=== PATIENT | female | born 1980 | race Caucasian/White ===

== ENCOUNTER 2021-05-15 15:17 | Outpatient (REF) | payer OTHER, SELFPAY ==
--- NOTE | ~2021-05-15 | XR_ITS ---
EXAMINATION: XR SHOULDER, LEFT CLINICAL INFORMATION: Left shoulder injury COMPARISON: None TECHNIQUE: Three views of the left shoulder. FINDINGS: There is no evidence of acute fracture or dislocation of the left shoulder. No calcific tendinitis. The glenohumeral joint appears unremarkable. Mild spurring about the acromioclavicular joint is seen. There is no widening of the coracoclavicular space. XR/XR shoulder LT min 2V IMPRESSION: No significant bony abnormality of the left shoulder identified.
== END 2021-05-15 15:18 | disposition home or self-care (01) ==
LOC: HO.HMGCX 15:17
PROVIDERS: PCP Internal Medicine; Visit Provider Internal Medicine
DX: S46.009A Unspecified injury of muscle(s) and tendon(s) of the rotator cuff of unspecified shoulder, initial encounter (principal); S49.90XA Unspecified injury of shoulder and upper arm, unspecified arm, initial encounter
CPT/HCPCS: 73030

== ENCOUNTER 2021-06-04 14:18 | Outpatient (REF) | payer OTHER, SELFPAY ==
--- NOTE | ~2021-06-04 | US_ITS ---
EXAMINATION: US ABDOMEN COMPLETE CLINICAL INFORMATION: Cholesterolosis of the gallbladder. Follow-up gallbladder polyp. COMPARISON: Ultrasound abdomen complete 09/03/2018 and 08/07/2017. TECHNIQUE: Real-time imaging of the abdominal viscera. FINDINGS: PANCREAS: Normal. ABDOMINAL AORTA: The proximal, mid, and distal segments are normal in caliber. INFERIOR VENA CAVA: Visualized portions are normal. LIVER: Normal. The liver is normal in size. The liver contour is normal. Parenchymal echogenicity is normal. No focal hepatic lesion. There is no intrahepatic biliary duct dilatation seen. GALLBLADDER: The gallbladder is normal in size. The gallbladder wall thickness is normal measuring 0.2 cm. There were multiple small 1 to 2 mm echogenic densities adjacent to the wall suggestive of adenomyomatosis of the gallbladder wall. This is similar to previous exam. No definite gallstones are seen. There is a small amount of echogenic bile in the gallbladder. COMMON BILE DUCT: Normal in caliber measuring 0.2 cm in diameter. RIGHT KIDNEY: Normal. No hydronephrosis. No renal calculi or focal parenchymal lesions. The kidney measures 10.6 cm in maximum dimension. LEFT KIDNEY: There is a 1.2 x 0.8 x 0.9 cm cyst in the lower pole. No hydronephrosis or renal calculi. The kidney measures 10.2 cm in maximum dimension. SPLEEN: Normal. The spleen measures 7.3 cm in maximum dimension. FREE FLUID: None. US/US abdomen complete IMPRESSION: Adenomyomatosis of the gallbladder wall. Small left renal cyst.
== END 2021-06-04 14:19 | disposition home or self-care (01) ==
LOC: HO.HMGCX 14:18
PROVIDERS: Visit Provider Internal Medicine
DX: K82.4 Cholesterolosis of gallbladder (principal)
CPT/HCPCS: 76700

== ENCOUNTER → 2021-06-14 13:34 | Outpatient (BNVA) | payer OTHER, SELFPAY | PROVIDERS: PCP Internal Medicine; Visit Provider Physician Assistant | DX: M75.82 Other shoulder lesions, left shoulder (principal) | CPT/HCPCS: 20610; 99202; J1040 ==

== ENCOUNTER → 2021-07-31 12:49 | Outpatient (BNVA) | payer OTHER, SELFPAY | PROVIDERS: PCP Internal Medicine; Visit Provider Physician Assistant | DX: M75.82 Other shoulder lesions, left shoulder (principal); S46.009D Unspecified injury of muscle(s) and tendon(s) of the rotator cuff of unspecified shoulder, subsequent encounter | CPT/HCPCS: 99212 ==

== ENCOUNTER 2021-08-21 13:36 | Outpatient (REF) | payer OTHER, SELFPAY ==
--- NOTE | ~2021-08-21 | MR_ITS ---
EXAMINATION: MRI SHOULDER WITHOUT CONTRAST, LEFT CLINICAL INFORMATION: Injury, pain, decreased range of motion. COMPARISON: X-ray 05/15/2021. TECHNIQUE: MRI of the shoulder without contrast is performed in a 1.5 Hannah high-field scanner. FINDINGS: CORACOACROMIAL ARCH: Mild acromioclavicular arthritis. No significant fluid in the subacromial subdeltoid space. Undersurface of the acromion is concave. ROTATOR CUFF: Mild tendinosis in the distal supraspinatus and infraspinatus tendons. No focal tear. Teres minor, subscapularis are intact. ROTATOR CUFF MUSCLES: No muscle atrophy or fatty infiltration. BICEPS TENDON: Intact LABRUM/CAPSULE: Increased signal in the mid/inferior labrum, with a somewhat linear configuration. This is suggestive of degeneration plus/minus undisplaced tear. Remainder the labrum is intact GLENOHUMERAL JOINT/MARROW: In the posterior aspect of the humeral head, is a 5 x 6 mm T2 bright focus with internal low signal foci, well-defined margins, no surrounding edema, has a nonaggressive appearance. Differential consideration include chondroid lesion such as enchondroma. MR/MR shoulder LT wo con IMPRESSION: 1. Mild distal supraspinatus and infraspinatus tendinosis. No focal rotator cuff tear is seen. 2. Findings in the posterior labrum, in the mid/inferior quadrant, are suggestive of degeneration plus/minus undisplaced tear. 3. 5 x 6 mm lesion in the posterior aspect of the humeral head, has a nonaggressive appearance. Differential consideration include nonaggressive chondroid lesion. 4. Mild acromioclavicular arthritis.
== END 2021-08-21 13:37 | disposition home or self-care (01) ==
LOC: HO.MRI 13:36
PROVIDERS: Visit Provider Physician Assistant
DX: S46.009A Unspecified injury of muscle(s) and tendon(s) of the rotator cuff of unspecified shoulder, initial encounter (principal); X58.XXXA Exposure to other specified factors, initial encounter; Y93.9 Activity, unspecified; Y92.9 Unspecified place or not applicable; Y99.8 Other external cause status
CPT/HCPCS: 73221

== ENCOUNTER → 2021-08-29 10:46 | Outpatient (BNVA) | payer OTHER, SELFPAY | PROVIDERS: PCP Internal Medicine; Visit Provider Physician Assistant | DX: M19.012 Primary osteoarthritis, left shoulder (principal); M75.92 Shoulder lesion, unspecified, left shoulder | CPT/HCPCS: 99212 ==

== ENCOUNTER 2023-04-17 08:40 | Outpatient (AMB) | payer OTHER, SELFPAY ==
--- NOTE | 2023-04-17 08:52 | MHC.PC.OV ---
Vital Signs 04/17/23 08:56 Height 5 ft 2 in Weight 114 lb BMI 20.8 BP 120/68 Blood Pressure Location Rt brachial Position Sitting Pulse 59 Pulse Source Pulse Oximeter Pulse Oximetry (%) 100 Oxygen Delivery Method Room Air Intake Visit Reasons: health concerns Intake Note: Pt is here today for a sick visit. Pt states that she injured her L elbow a year ago and about a month ago she injured it again. Pt also c/o pressure behind her knees and also she is going through menopause. Pt states that her sister got dx with celiac recently and she would like to have blood work kunz to check for celiac. Allergies zolpidem [Ambien] Adverse Reaction (Unknown, Verified 04/17/23 09:06) sleep walking Medication List - Last Reconciled 04/17/23 by Ellen Plaza MD aluminum chloride 20% (Drysol) 1 appl topical 2XW meloxicam 15 mg PO DAILY Tobacco use date assessed: 04/17/23 Dental Screening Dental Screen Date: 04/17/23 Did you have a dental visit in the last 12 months?: Yes Did you have a dental problem in the last 6 months where you did not have access to dental care?: No Was dental information given to patient?: Patient has dentist HPI health concerns HPI Details Pt presents for PE. She complains of L elbow pain for 1 month worse when lifting or twisting started after patient lifted a heavy box. She has been taking ibuprofen with some relief. Patient complains of hot flashes worse at night for the last year. Her last menses were a year and a half ago. Patient complains of episodes of sharp pressure behind R knee lasting 10 secs, 7/10, radiating to posterior thigh usually relieved by sitting down once or twice a week for the last month. 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 Patient denies pain at rest or knee joint swelling. [facility] Medical History Gall bladder polyp Rotator cuff injury Shoulder injury Family History (Updated 04/17/23 @ 10:04 by Ellen Plaza MD) Father Hypertension Mother No problems noted. Sister Celiac disease Social History (Updated 04/17/23 @ 10:03 by Ellen Plaza MD) Household Members Other:: single, works in a cafeteria, smokes 3 cigarettes a day Housing: House Patient Tobacco Use Status: Current everyday Tobacco user Tobacco use type: Cigarette Cigarettes Per Day: 3 Years Smoked: since 22 years old e-Cigarette/Vaping Use: Never Used Current occupational status: employed Cognitive needs: No Hearing needs: No Vision needs: Yes Questionnaire PHQ-9 Over the last 2 weeks, how often have you been bothered by any of the following problems? 1. Little interest or pleasure in doing things: not at all 2. Feeling down, depressed, or hopeless: not at all 3. Trouble falling or staying asleep, or sleeping too much: several days 4. Feeling tired or having little energy: several days 5. Poor appetite or overeating: not at all 6. Feeling bad about yourself - or that you are a failure or have let yourself or your family down: not at all 7. Trouble concentrating on things, such as reading the newspaper or watching television: not at all 8. Moving or speaking so slowly that other people could have noticed. Or the opposite - being so fidgety or restless that you have been moving around a lot more than usual: not at all 9. Thoughts that you would be better off or of hurting yourself in some way: not at all Total score: 2 Depression Screening Interpretation: Negative Depression Screening Done: Yes Source: Developed by Drs. Gage Eldridge, Amy Lr, Rafael Johnson and colleagues, with an educational radha from [email or web address] Thrive Questionnaire Date Thrive assessed: 04/17/23 I am a: Patient What is your living situation today?: I have a steady place to live Within the past 12 months, did the food you bought not last and you didn't have the money to get more?: Never true Within the past 12 months, did you worry whether your food would run out before you got money to buy more?: Never true Do you have trouble paying for medicines?: No Do you have trouble getting transportation to medical appointments?: No Do you have trouble paying your heating and electricity bill?: No Do you have trouble taking care of your child, family member or friend?: No Do you have trouble with day-to-day activities such as bathing, preparing meals, shopping, managing finances, etc.?: No Are you currently unemployed and looking for a job?: No Are you interested in more education?: No Please select the resources that you would like help with: None Currently or been in a relationship where the following occur: no concerns reported THRIVE Score: 0 AUDIT C Alcohol Use Questionnaire (AUDIT-C) 1. How often do you have a drink containing alcohol?: Never 3. How often do you have six or more drinks on one occasion?: Never Total Score: 0 CATHY-7 AMB Questionnaire CATHY-7 Date CATHY - 7 assessed: 04/17/23 Feeling nervous, anxious, or on edge: 0 = Not at all Not being able to stop or control worryin = Not at all Worrying too much about different things: 0 = Not at all Trouble relaxin = Not at all Being so restless that it is hard to sit still: 0 = Not at all Becoming easily annoyed or irritable: 0 = Not at all Feeling afraid as if something awful might happen: 0 = Not at all Total CATHY-7 score (0-4 normal; 5-9 mild; 10-14 moderate; 15-21 severe): 0 Source: Developed by Drs. Gage Eldridge, Amy Lr, Rafael Johnson and colleagues, with an educational radha from [email or web address] Review of Systems Const All systems reviewed & are unremarkable except as noted in HPI and below Reports no additional complaints Eyes Reports no additional complaints ENT Reports no additional complaints Card Reports no additional complaints Resp Reports no additional complaints GI Reports no additional complaints Reports no additional complaints Physical exam (Primary Care) Vital Signs: Last Vital Signs Pulse 59 04/17/23 08:56 BP 120/68 04/17/23 08:56 Pulse Ox 100 04/17/23 08:56 Oxygen Delivery Method Room Air 04/17/23 08:56 BMI result Body Mass Index 20.8 Tobacco/Smoking Status: Tobacco use Status Tobacco use date assessed 04/17/23 04/17/23 09:05 Patient Tobacco Use Status Current everyday Tobacco 04/17/23 08:54 Tobacco use type Cigarette 04/17/23 08:54 e-Cigarette/Vaping Use Never Used 04/17/23 09:05 PHQ-9: PHQ-9 Score PHQ-9: Total score 2 04/17/23 09:08 Depression Screening Interpretation: Negative Thrive Assessment: Date of Thrive Assessment Date Thrive assessed 04/17/23 04/17/23 09:08 Currently or been in a relationship where the following occur: no concerns reported Const General: no acute distress HENMT Head: Yes normal to inspection Ears: hearing grossly normal bilaterally Mouth: Normal oral and palatal mucosa present Eyes General: appearance normal, both eyes and all related structures Neck Neck: Yes no lymphadenopathy and Yes supple Resp Effort & Inspection: normal respiratory effort Auscultation: clear to auscultation bilaterally Cardio Rhythm: regular rhythm Heart sounds: S1 normal heart sound present and S2 normal heart sound present GI Inspection: Yes normal to inspection Palpation (GI): Soft to palpation Percussion: Yes normal to percussion Auscultation: normal bowel sounds Extrem Other: reproducible tenderness in the lateral aspect of left elbow and decreased range of motion no soft tissue swelling. There is a decreased range of motion right knee tenderness behind the right knee no soft tissue swelling erythema or warmth General: Yes no clubbing, cyanosis or edema Assessment and Plan Assessment & Plan (1) Annual physical exam: Code(s): Z00.00 - Encounter for general adult medical examination without abnormal findings Plan: Well-balanced diet regular physical activity discussed with the patient she will have a fasting blood work will be referred for mammogram and screening colonoscopy (2) Knee pain, right: Code(s): M25.561 - Pain in right knee Plan: Check x-ray of right knee and knee exercises given to the patient (3) Left tennis elbow: Code(s): M77.12 - Lateral epicondylitis, left elbow Plan: Check elbow x-ray try meloxicam 15 mg daily and refer for physical therapy (4) Gall bladder polyp: Comment: Follow-up with gallbladder ultrasound, multiple less than 3 mm Code(s): K82.4 - Cholesterolosis of gallbladder (5) Hx of cone biopsy of cervix: Comment: 2018 Dr. Beckham, negative, pap negative HPV 2017 Code(s): Z98.890 - Other specified postprocedural states Plan: Patient will return for a Pap smear Orders: Orders Comprehensive [place]. Panel Fast Today Z00.00 - Encounter for general adult medical examination without abnormal findings Complete Blood Count Auto Diff Today Z00.00 - Encounter for general adult medical examination without abnormal findings Transglutaminase IgA Today Z00.00 - Encounter for general adult medical examination without abnormal findings XR elbow LT 2V Today M77.12 - Lateral epicondylitis, left elbow, Z00.00 - Encounter for general adult medical examination without abnormal findings XR knee RT 2V Today M25.561 - Pain in right knee, Z00.00 - Encounter for general adult medical examination without abnormal findings US abdomen limited Today K82.4 - Cholesterolosis of gallbladder Lipid Panel Today Z00.00 - Encounter for general adult medical examination without abnormal findings Endomysial IgA rflx Titer Today Z00.00 - Encounter for general adult medical examination without abnormal findings Immunoglobulins,IgG IgA IgM Today Z00.00 - Encounter for general adult medical examination without abnormal findings TSH reflex Free T4 Today Z00.00 - Encounter for general adult medical examination without abnormal findings Vitamin D 25-OH Total Today Z00.00 - Encounter for general adult medical examination without abnormal findings PT Evaluation and Treatment Today Z00.00 - Encounter for general adult medical examination without abnormal findings MM screening mammo BI Today Z00.00 - Encounter for general adult medical examination without abnormal findings, Z12.31 - Encounter for screening mammogram for malignant neoplasm of breast Medications: New meloxicam 15 mg PO DAILY 10 tabs 0RF aluminum chloride 20% (Drysol) 1 appl topical 2XW 37.5 mL 5RF Coding Level of Care Code Est Pt Prev Care 40-64y(73656) Diagnoses Annual physical exam Z00.00 Knee pain, right M25.561 Left tennis elbow M77.12 Gall bladder polyp K82.4 Hx of cone biopsy of cervix Z98.890
[2023-04-17 08:56] VITALS: BP 120/68; PULSE 59; O2SAT 100; BMI 20.8
== END 2023-04-17 10:09 | disposition home or self-care (01) ==
PROVIDERS: PCP Internal Medicine; Visit Provider Internal Medicine
DX: Z00.00 Encounter for general adult medical examination without abnormal findings (principal); M25.561 Pain in right knee; M77.12 Lateral epicondylitis, left elbow; K82.4 Cholesterolosis of gallbladder; Z98.890 Other specified postprocedural states
CPT/HCPCS: 99396

== ENCOUNTER 2023-04-20 13:40 | Outpatient (REF) | payer OTHER, SELFPAY ==
--- NOTE | ~2023-04-20 | XR_ITS ---
STUDY: Left elbow and right knee INDICATION: Left elbow and right knee pain COMPARISON: None TECHNIQUE: 3 view left elbow, 2 view right knee FINDINGS: Left elbow: No fracture or dislocation. Alignment and articulations are maintained. Soft tissues are unremarkable. Right knee: Small suprapatellar effusion but no fracture or dislocation. Mild bony prominence superior aspect of the medial femoral condyle without identifiable lesion or cortical destruction.. Joint spaces are preserved. XR/XR elbow LT 2V IMPRESSION: No acute bony pathology left elbow. Small right suprapatellar effusion. Mild bony prominence medial femoral condyle of uncertain etiology and significance. If symptoms referable to this location, consider MRI.
--- NOTE | ~2023-04-20 | XR_ITS ---
STUDY: Left elbow and right knee INDICATION: Left elbow and right knee pain COMPARISON: None TECHNIQUE: 3 view left elbow, 2 view right knee FINDINGS: Left elbow: No fracture or dislocation. Alignment and articulations are maintained. Soft tissues are unremarkable. Right knee: Small suprapatellar effusion but no fracture or dislocation. Mild bony prominence superior aspect of the medial femoral condyle without identifiable lesion or cortical destruction.. Joint spaces are preserved. XR/XR knee RT 2V IMPRESSION: No acute bony pathology left elbow. Small right suprapatellar effusion. Mild bony prominence medial femoral condyle of uncertain etiology and significance. If symptoms referable to this location, consider MRI.
== END 2023-04-20 13:41 | disposition home or self-care (01) ==
LOC: HO.HMGCX 13:40
PROVIDERS: PCP Internal Medicine; Visit Provider Internal Medicine
DX: Z00.00 Encounter for general adult medical examination without abnormal findings (principal); M25.561 Pain in right knee; M77.12 Lateral epicondylitis, left elbow
CPT/HCPCS: 73070; 73560

== ENCOUNTER 2023-05-11 12:59 | Outpatient (REF) | payer OTHER, SELFPAY ==
[2023-05-11 16:22] LABS: MANUAL DIFF FLAG NO
[2023-05-11 16:35] LABS: Basophils Absolute Auto 0.1 X10*3/uL (0.0-0.2); Basophils Percent Auto 0.9 % (0-2); Eosinophils Absolute Auto 0.1 X10*3/uL (0.0-0.4); Eosinophils Percent Auto 1.7 % (0-4); Hemoglobin 15.3 g/dl (12.0-16.0); Imm Gran Abs Auto 0.03 X10*3/uL (0.00-0.03); Imm Gran Pct Auto 0.5 % (0.0-0.4); Lymphocytes Absolute Auto 2.1 X10*3/uL (1.2-4.9); Lymphocytes Percent Auto 32.1 % (20-40); Mean Corpuscular HGB Conc 33.3 g/dl (31.0-35.0); Mean Corpuscular Hemoglobin 31.4 pg (27.0-33.0); Mean Corpuscular Volume 94.5 fL (80.0-98.0); Mean Platelet Volume 12.1 fL (9.4-12.3); Monocytes Absolute Auto 0.5 X10*3/uL (0.1-1.2); Monocytes Percent Auto 7.4 % (2-11); Neutrophils Absolute Auto 3.8 x10*3/uL (2.0-8.3); Neutrophils Percent Auto 57.4 % (45-73); Platelet Count 207 X10*3/uL (160-400); Red Blood Count 4.87 X10*6/uL (4.20-5.50); Red Cell Distribution Width 12.3 % (11.0-16.0); White Blood Count 6.6 X10*3/uL (4.8-10.8)
[2023-05-11 16:49] LABS: Alanine Aminotransferase 13 U/L (0-31); Albumin Level 4.8 g/dL (3.5-5.0); Alkaline Phosphatase 62 U/L (39-117); Anion Gap 13 (12-20); Aspartate Amino Transferase 15 U/L (5-31); Bilirubin Total 0.5 mg/dL (0.0-1.0); Blood Urea Nitrogen 15 mg/dL (9-16); Calcium 9.6 mg/dL (8.4-10.2); Carbon Dioxide 24 mmol/L (22-29); Chloride 107 mmol/L (96-108); Cholesterol 242 mg/dL (<200); Estimated Glomerular Filt Rate > 60; Glucose Fasting 107 mg/dL (60-99); HDL Cholesterol 95 mg/dL (>40); LDL Cholesterol Calculated 135 mg/dL (<100); Potassium 3.9 mmol/L (3.3-5.1); Sodium 140 mmol/L (135-145); Total Protein 7.9 g/dL (6.5-8.0); Triglycerides 62 mg/dL (<150)
[2023-05-11 17:06] LABS: TSH reflex Free T4 1.16 uIU/mL (0.32-4.0); Vitamin D 25-OH Total 61.8 ng/mL (>30)
[2023-05-13 13:52] LABS: Transglutaminase IgA <1.0 U/mL
[2023-05-15 11:48] LABS: Endomysial IgA Antibody Negative (Negative)
[2023-05-18 11:18] LABS: IgA 135 mg/dL (47-310); IgG 1216 mg/dL (600-1640); IgM 60 mg/dL (50-300)
== END 2023-05-11 13:00 | disposition home or self-care (01) ==
LOC: HO.HMGCLDS 12:59
PROVIDERS: PCP Internal Medicine; Visit Provider Internal Medicine
DX: Z00.00 Encounter for general adult medical examination without abnormal findings (principal)
CPT/HCPCS: 36415; 80053; 80061; 82306; 82784; 84443; 85025; 86231; 86364

== ENCOUNTER 2023-05-21 08:49 | Outpatient (REF) | payer OTHER, SELFPAY ==
--- NOTE | ~2023-05-21 | US_ITS ---
EXAMINATION: US ABDOMEN LIMITED CLINICAL INFORMATION: Cholesterolosis of the gallbladder. COMPARISON: Ultrasound abdomen complete 06/04/2021 and 09/03/2018. TECHNIQUE: Real-time imaging of the right upper quadrant abdominal viscera. FINDINGS: PANCREAS: Normal. LIVER: Normal. The liver is normal in size. The liver contour is normal. Parenchymal echogenicity is normal. No focal hepatic lesion. There is no intrahepatic biliary duct dilatation seen. GALLBLADDER: The gallbladder is physiologically distended without evidence of stones, wall thickening or pericholecystic fluid. There are multiple tiny gallbladder polyps, the largest measures 0.1 x 0.2 x 0.2 cm. A small amount of sludge is seen within the gallbladder. COMMON BILE DUCT: Normal in caliber measuring 0.1 cm in diameter. RIGHT KIDNEY: Normal. No hydronephrosis. No renal calculi or focal parenchymal lesions. The kidney measures 10.9 cm in maximum dimension. FREE FLUID: None. US/US abdomen limited IMPRESSION: 1. Multiple tiny gallbladder polyps, the largest measures 0.1 x 0.2 x 0.2 cm. 2. Small amount of sludge within the gallbladder.
== END 2023-05-21 08:50 | disposition home or self-care (01) ==
LOC: HO.HMGCX 08:49
PROVIDERS: PCP Internal Medicine; Visit Provider Internal Medicine
DX: K82.4 Cholesterolosis of gallbladder (principal)
CPT/HCPCS: 76705

== ENCOUNTER 2023-07-09 11:06 | Outpatient (REF) | payer OTHER, SELFPAY ==
--- NOTE | ~2023-07-09 | MM_ITS ---
EXAMINATION: MM SCREENING DIGITAL BREAST TOMOSYNTHESIS, BILATERAL CLINICAL INFORMATION: Screening. Asymptomatic. COMPARISON: Mammography: This is a baseline study. TECHNIQUE: Digital breast tomosynthesis is performed in both the craniocaudal and mediolateral oblique views along with computer-aided detection (CAD). Synthesized 2D images are generated from the tomosynthesis. FINDINGS: The breasts are heterogeneously dense, which may obscure small masses (ACR BI-RADS breast composition Category c). There are no significant masses, abnormal calcifications, or other abnormalities. MM/MM tomosynthesis screening BI IMPRESSION: No mammographic evidence of malignancy. ASSESSMENT: BI-RADS BI-RADS 1 - Negative RECOMMENDATION: Routine annual mammography screening. 1 year F/U This examination should not preclude the clinical evaluation of a suspicious palpable abnormality. This patient's information was entered into a reminder system with a target due date for their next mammogram.
== END 2023-07-09 11:07 | disposition home or self-care (01) ==
LOC: HO.MAMMO 11:06
PROVIDERS: PCP Internal Medicine; Visit Provider Internal Medicine
DX: Z12.31 Encounter for screening mammogram for malignant neoplasm of breast (principal)
CPT/HCPCS: 77063; 77067

== ENCOUNTER → 2023-07-09 11:15 | Outpatient (BNV) | payer OTHER, SELFPAY | PROVIDERS: PCP Internal Medicine; Visit Provider Radiology Diagnostic Radiology | DX: Z12.31 Encounter for screening mammogram for malignant neoplasm of breast (principal) | CPT/HCPCS: 77063; 77067 ==

== ENCOUNTER 2023-11-12 08:13 | Outpatient (AMB) | payer OTHER, SELFPAY ==
[2023-11-12 08:14] VITALS: BP 120/66; PULSE 66; O2SAT 99; BMI 21.0
--- NOTE | 2023-11-12 08:14 | MHC.PC.OV ---
Vital Signs 11/12/23 08:14 Height 5 ft 2 in Weight 115 lb BMI 21.0 BP 120/66 Blood Pressure Location Rt brachial Position Sitting Pulse 66 Pulse Source Pulse Oximeter Pulse Oximetry (%) 99 Oxygen Delivery Method Room Air Intake Visit Reasons: Follow up Intake Note: Pt is here today for a follow up visit. Allergies zolpidem [Ambien] Adverse Reaction (Unknown, Verified 11/12/23 08:16) sleep walking Medication List - Last Reconciled 11/12/23 by Ellen Plaza MD aluminum chloride 20% (Drysol) 1 appl topical 2XW Tobacco use date assessed: 04/17/23 Dental Screening Dental Screen Date: 04/17/23 HPI Follow up HPI Details Patient presents for the follow-up of perimenopausal symptoms, including insomnia and hot flashes. She tried [id number] supplements without improvement. [facility] Medical History Gall bladder polyp Rotator cuff injury Shoulder injury Family History Father Hypertension Mother No problems noted. Sister Celiac disease Social History Household Members Other:: single, works in a cafeteria, smokes 3 cigarettes a day Housing: House Patient Tobacco Use Status: Current everyday Tobacco user Tobacco use type: Cigarette Cigarettes Per Day: 3 Years Smoked: since 22 years old e-Cigarette/Vaping Use: Never Used service: No Current occupational status: employed Cognitive needs: No Hearing needs: No Vision needs: Yes Questionnaire Thrive Questionnaire Date Thrive assessed: 04/17/23 CATHY-7 AMB Questionnaire CATHY-7 Date CATHY - 7 assessed: 04/17/23 Source: Developed by Drs. Gage Eldridge, Amy Lr, Rafael Johnson and colleagues, with an educational radha from [employer]. Review of Systems Const All systems reviewed & are unremarkable except as noted in HPI and below Reports no additional complaints Eyes Reports no additional complaints ENT Reports no additional complaints Card Reports no additional complaints Resp Reports no additional complaints GI Reports no additional complaints Physical exam (Primary Care) Vital Signs: Last Vital Signs Pulse 66 11/12/23 08:14 BP 120/66 11/12/23 08:14 Pulse Ox 99 11/12/23 08:14 Oxygen Delivery Method Room Air 11/12/23 08:14 BMI result Body Mass Index 21.0 Tobacco/Smoking Status: Tobacco use Status Tobacco use date assessed 04/17/23 11/12/23 08:16 Patient Tobacco Use Status Current everyday Tobacco 11/12/23 08:16 Tobacco use type Cigarette 11/12/23 08:16 e-Cigarette/Vaping Use Never Used 11/12/23 08:16 Thrive Assessment: Date of Thrive Assessment Date Thrive assessed 04/17/23 11/12/23 08:16 Const General: no acute distress HENMT Head: Yes normal to inspection Ears: hearing grossly normal bilaterally Throat: Yes posterior oropharynx normal Eyes General: appearance normal, both eyes and all related structures Neck Neck: Yes no lymphadenopathy and Yes supple Resp Effort & Inspection: normal respiratory effort Auscultation: clear to auscultation bilaterally Cardio Rhythm: regular rhythm Heart sounds: S1 normal heart sound present and S2 normal heart sound present Assessment and Plan Assessment & Plan (1) Hx of cone biopsy of cervix: Comment: 2018 Dr. Beckham, negative, pap negative HPV 2018 Code(s): Z98.890 - Other specified postprocedural states (2) Abnormal Pap smear of cervix: Code(s): R87.619 - Unspecified abnormal cytological findings in specimens from cervix uteri (3) Hyperlipidemia: Code(s): E78.5 - Hyperlipidemia, unspecified Plan: Low-cholesterol diet regular physical activity discussed with the patient (4) Annual physical exam: Code(s): Z00.00 - Encounter for general adult medical examination without abnormal findings (5) Menopause: Code(s): Z78.0 - Asymptomatic menopausal state Plan: Well-balanced diet regular physical activity discussed with the patient. She will try low dose of estradiol with the progesterone for 1 month. Patient was advised to quit smoking completely because of the high risk of complications from hormonal replacement therapy when smoking, Orders: Orders Vitamin D 25-OH Total 6 Months E78.5 - Hyperlipidemia, unspecified, Z00.00 - Encounter for general adult medical examination without abnormal findings UA w Microscopic 6 Months E78.5 - Hyperlipidemia, unspecified, Z00.00 - Encounter for general adult medical examination without abnormal findings Lipid Panel 6 Months E78.5 - Hyperlipidemia, unspecified, Z00.00 - Encounter for general adult medical examination without abnormal findings Comprehensive [place]. Panel Fast 6 Months E78.5 - Hyperlipidemia, unspecified, Z00.00 - Encounter for general adult medical examination without abnormal findings Complete Blood Count Auto Diff 6 Months E78.5 - Hyperlipidemia, unspecified, Z00.00 - Encounter for general adult medical examination without abnormal findings TSH reflex Free T4 6 Months E78.5 - Hyperlipidemia, unspecified, Z00.00 - Encounter for general adult medical examination without abnormal findings Referrals EMPLOYMENT [employer] EXAM[employer]ER Referral E78.5 - Hyperlipidemia, unspecified, R87.619 - Unspecified abnormal cytological findings in specimens from cervix uteri Gastroenterology Referral E78.5 - Hyperlipidemia, unspecified, Z00.00 - Encounter for general adult medical examination without abnormal findings Medications: New progesterone micronized 200 mg PO BEDTIME 30 caps 2RF estradiol 0.5 mg PO DAILY 30 days 30 tabs 2RF Coding Level of Care Code Est Pt Level 3 (60630) Diagnoses Hx of cone biopsy of cervix Z98.890 Abnormal Pap smear of cervix R87.619 Hyperlipidemia E78.5 Annual physical exam Z00.00 Menopause Z78.0
== END 2023-11-12 08:50 | disposition home or self-care (01) ==
PROVIDERS: PCP Internal Medicine; Visit Provider Internal Medicine
DX: Z98.890 Other specified postprocedural states (principal); R87.619 Unspecified abnormal cytological findings in specimens from cervix uteri; E78.5 Hyperlipidemia, unspecified; Z00.00 Encounter for general adult medical examination without abnormal findings; Z78.0 Asymptomatic menopausal state
CPT/HCPCS: 99213

== ENCOUNTER 2024-03-11 09:48 | Outpatient (REF) | payer OTHER, SELFPAY ==
[2024-03-11 13:08] LABS: C Reactive Protein < 0.04 mg/dL (< or = 0.50); Lipase 129 U/L (8-78); Magnesium 2.4 mg/dL (1.6-2.6)
[2024-03-11 13:36] LABS: Folate > 20.0 ng/mL (> or = 4.0); Vitamin B12 481 pg/mL (200-900)
[2024-03-14 11:39] LABS: Vitamin D 25-OH, D2 <4 ng/mL; Vitamin D 25-OH, D3 37 ng/mL; Vitamin D 25-OH, Total 37 ng/mL (30-100)
[2024-03-17 23:13] LABS: Transglutaminase Ab IgG <1.0 U/mL; Transglutaminase IgA <1.0 U/mL
== END 2024-03-11 09:49 | disposition home or self-care (01) ==
LOC: HO.LAB 09:48
PROVIDERS: PCP Internal Medicine; Visit Provider Nurse Practitioner Family
DX: K58.9 Irritable bowel syndrome, unspecified (principal); R10.9 Unspecified abdominal pain; R19.7 Diarrhea, unspecified; E55.9 Vitamin D deficiency, unspecified; N18.9 Chronic kidney disease, unspecified
CPT/HCPCS: 36415; 82306; 82607; 82746; 83690; 83735; 86140; 86364; 99202

== ENCOUNTER 2024-03-11 09:48 | Outpatient (AMB) | payer OTHER, SELFPAY ==
[2024-03-11 10:00] VITALS: BP 132/64; PULSE 64; O2SAT 99; BMI 21.3
--- NOTE | 2024-03-11 10:00 | A.OFFVIS_ITS ---
Vital Signs 03/11/24 10:00 Height 5 ft 2 in Weight 116 lb 6.465 oz BMI 21.3 BP 132/64 Blood Pressure Location Rt brachial Position Sitting Pulse 64 Pulse Source Pulse Oximeter Pulse Oximetry (%) 99 Oxygen Delivery Method Room Air Intake Visit Reasons: Constipation, symptomatic colo scrn Intake Note: NEW PATIENT Ashley presents in office today for a scheduled symptomatic colo scrn Prior hx of colo/egd? Initial Meds and Allergies reviewed? Y Any significant concerns or questions? Constipation, loose stools intermittently, bloating. Pt would also like celiac testing per [facility]. Pharmacy verified? [facility] Important [facility]? Sister, celiac disease Core B[employer] Operator Required: No Allergies zolpidem [Ambien] Adverse Reaction (Unknown, Verified 03/11/24 10:01) sleep walking HPI HPI Constipation, symptomatic colo scrn: Details: 43 year old? female with past medical history of hyperlipidemia, gallbladder polyp, is here today for pre colonoscopy screening.? Patient was sent to us by her PCP.? This is her first colonoscopy screening.? Patient called the office couple weeks ago and asked to be seen sooner as she has been having more frequent GI symptoms. Patient was having constipation for couple of weeks, however currently she is moving her bowels better. Patient reports occasional epigastric discomfort and bloating. Patient reports that her sister was just diagnosed with celiac. Patient reports that she is not trying to stay away from gluten although she tried gluten free diet in the past. Patient denies any abdominal pain, however she occasionally will experience epigastric pain postprandially. Patient denies any nausea or vomiting. History of gallbladder polyps and yearly ultrasound is ordered by PCP. Patient denies any family history of CRC.? Denies history of difficulty with sedation or anesthesia in the past.? Negative for history of sleep apnea.? Denies any history of cardiac, renal, pulmonary, or hepatic disease.?? No history of infectious? diseases like hepatitis A, B, C, HIV or tuberculosis.? Patient is not on any anticoagulation [facility] Medical History Gall bladder polyp Rotator cuff injury Shoulder injury Family History Father Hypertension Mother No problems noted. Sister Celiac disease Social History Household Members Other:: single, works in a cafeteria, smokes 3 cigarettes a day Housing: House Patient Tobacco Use Status: Current everyday Tobacco user Tobacco use type: Cigarette Cigarettes Per Day: 3 Years Smoked: since 22 years old e-Cigarette/Vaping Use: Never Used service: No Current occupational status: employed Cognitive needs: No Hearing needs: No Vision needs: Yes Review of Systems Const Denies weight gain and Denies weight loss ENT Reports no additional complaints, Denies dysphagia and Denies odynophagia Card Reports no additional complaints Resp Reports no additional complaints GI Reports abdominal pain (Epigastric), Denies belching, Denies melena, Reports bloating, Denies change in bowel habits, Reports constipation, Denies dysphagia, Denies excessive flatus, Denies dyspepsia, Denies heartburn, Denies diarrhea, Reports loose stools, Denies nausea, Denies odynophagia and Denies vomiting Reports no additional complaints Musc Reports no additional complaints Neuro Reports no additional complaints Psych Reports no additional complaints Endo Reports no additional complaints Physical Exam Vital Signs: Last Vital Signs Pulse 64 03/11/24 10:00 BP 132/64 03/11/24 10:00 Pulse Ox 99 03/11/24 10:00 Oxygen Delivery Method Room Air 03/11/24 10:00 BMI result Body Mass Index 21.3 Const General: healthy appearing, no acute distress and well developed Nutritional Appearance: well nourished Orientation/consciousness: patient oriented x3 Resp Effort & Inspection: normal respiratory effort, able to speak in complete sentences, no tracheal deviation and symmetric chest movement Auscultation: clear to auscultation bilaterally Cardio Rate: regular rate GI Inspection: Yes normal to inspection and No distended Palpation (GI): Soft to palpation, not firm, nontender and No hepatosplenomegaly present Auscultation: normal bowel sounds General: Yes no CVA tenderness Back/Spine/Pelvis Back: no CVA tenderness Skin General skin exam: elasticity normal, turgor normal and dry skin Neuro General: patient oriented x3 Psych Appearance: grossly normal Mental Status: mental status grossly normal Assessment & Plan Assessment & Plan (1) Screen for colon cancer: Code(s): Z12.11 - Encounter for screening for malignant neoplasm of colon (2) Postprandial epigastric pain: Code(s): R10.13 - Epigastric pain (3) Postprandial abdominal bloating: Code(s): R14.0 - Abdominal distension (gaseous) (4) Diarrhea: Code(s): R19.7 - Diarrhea, unspecified Qualifiers: Diarrhea type: functional diarrhea Qualified Code(s): K59.1 - Functional diarrhea Plan Patient denies any cardiac or respiratory symptoms.? Patient reports occasional postprandial abdominal bloating occasional loose stools and then constipation. Patient was encouraged to take fiber with probiotics and if she is having trouble moving her bowels to call the office. Family history of celiac, her sister was just diagnosed with upper endoscopy, with biopsy confirmed celiac disease. Patient denies any abdominal pain although reports postprandial epigastric pain occasionally. Patient reports that currently she is not staying away from gluten. Will send her to check transglutaminase. Reports postprandial loose stools at times. Will send CRP if positive will order stool calprotectin to rule out IBD. Discussed with patient low FODMAP diet. List of food recommended as well as list of food to avoid given to patient. Patient denies any dyspepsia, dysphagia or odynophagia. Will check lipase as she is reporting epigastric pain occasionally, possibility of chronic pancreatitis, unlikely acute pancreatitis as patient does not have any abdominal pain. Will check for malabsorption. Denies any issues with anesthesia in the past.? Denies any history of sleep apnea.? No history infectious diseases in the past or present.? Not on any anticoagulation therapy.? No family or personal history of colon cancer.? Patient denies melena, hematochezia, unintentional weight loss or ribbon like stools.? Message to surgical schedulers sent to book upper endoscopy and colonoscopy. Patient will return in 2 months so we can discuss prep before going for upper endoscopy and colonoscopy. Will discuss results. Patient will call our office if she will have worsening GI symptoms. Patient is agreeable to current plan of care and verbalizes understanding of instructions. She was given the opportunity to ask questions and all questions answered. Thank you for allowing me to participate in her care Orders: Orders C Reactive Protein Today K58.9 - Irritable bowel syndrome, unspecified Transglutaminase Ab IgG Today R10.9 - Unspecified abdominal pain Transglutaminase IgA Today R10.9 - Unspecified abdominal pain Lipase Today R10.9 - Unspecified abdominal pain Vitamin B12 and Folate Today R19.7 - Diarrhea, unspecified Vitamin D 25-OH (D2 and D3) Today E55.9 - Vitamin D deficiency, unspecified Magnesium Today N18.9 - Chronic kidney disease, unspecified Coding Level of Care Code New Pt Level 4 (52559) Diagnoses Screen for colon cancer Z12.11 Postprandial epigastric pain R10.13 Postprandial abdominal bloating R14.0 Functional diarrhea K59.1 Diarrhea type: functional diarrhea Time Spent (min) 45 Comment 30 minutes spent with patient and additional 15 minutes spent reviewing her records
== END 2024-03-11 10:43 | disposition home or self-care (01) ==
PROVIDERS: PCP Internal Medicine; Visit Provider Nurse Practitioner Family
DX: K59.00 Constipation, unspecified (principal); K59.1 Functional diarrhea; R10.13 Epigastric pain; R14.0 Abdominal distension (gaseous)
CPT/HCPCS: 99204

== ENCOUNTER 2024-05-04 08:26 | Outpatient (REF) | payer OTHER, SELFPAY ==
--- NOTE | ~2024-05-04 | US_ITS ---
CLINICAL HISTORY: K82.4 - Cholesterolosis of gallbladder Limited abdominal ultrasound Comparison: None Findings: The liver is normal in size, measuring 14.1 cm in length. Normal echogenicity without focal lesions. The common bile duct is normal in diameter, measuring 0.2 cm. No cholelithiasis. There are tiny gallbladder polyps which measure up to 2 mm. No wall thickening or pericholecystic fluid. Negative sonographic Saldaña sign. The right kidney is normal in echogenicity and size, measuring up to 10.7 cm in length. Unremarkable limited evaluation of the pancreas. Impression: Negative for acute cholecystitis. Tiny gallbladder polyps measuring up to 2 mm. This document has been electronically signed by: Erendira Vazquez MD on 05/04/2024 21:19:04
[2024-05-04 10:11] LABS: MANUAL DIFF FLAG NO
[2024-05-04 10:17] LABS: Basophils Percent Auto 0.5 % (0-2); Eosinophils Absolute Auto 0.1 X10*3/uL (0.0-0.4); Eosinophils Percent Auto 1.4 % (0-4); Hematocrit 42.5 % (37.0-47.0); Hemoglobin 13.9 g/dl (12.0-16.0); Imm Gran Abs Auto 0.02 X10*3/uL (0.00-0.03); Imm Gran Pct Auto 0.3 % (0.0-0.4); Lymphocytes Absolute Auto 1.6 X10*3/uL (1.2-4.9); Lymphocytes Percent Auto 20.5 % (20-40); Mean Corpuscular HGB Conc 32.7 g/dl (31.0-35.0); Mean Corpuscular Hemoglobin 30.7 pg (27.0-33.0); Mean Corpuscular Volume 93.8 fL (80.0-98.0); Mean Platelet Volume 11.6 fL (9.4-12.3); Monocytes Absolute Auto 0.4 X10*3/uL (0.1-1.2); Monocytes Percent Auto 5.5 % (2-11); Neutrophils Absolute Auto 5.6 x10*3/uL (2.0-8.3); Neutrophils Percent Auto 71.8 % (45-73); Platelet Count 206 X10*3/uL (160-400); Red Blood Count 4.53 X10*6/uL (4.20-5.50); Red Cell Distribution Width 12.2 % (11.0-16.0); White Blood Count 7.9 X10*3/uL (4.8-10.8)
[2024-05-04 10:43] LABS: Appearance Urine Clear; Color Urine Yellow; Glucose Urine UA Negative (Negative); Leukocyte Esterase Urine Negative (Negative); Nitrite Urine Negative (Negative); PH 5.5 (5.0-9.0); Specific Gravity - Urine >= 1.030 (1.005-1.025); Urine Blood Negative (Negative); Urine Ketones Negative (Negative); Urine Protein Negative (Neg-Trace)
[2024-05-04 10:45] LABS: Bacteria Urine None Seen (None Seen); Hyaline Casts Urine 0-2 /LPF (0-2); RBC Urine 0-2 /HPF (0-2); WBC Urine 0-5 /HPF (0-5)
[2024-05-04 10:48] LABS: Alanine Aminotransferase 15 U/L (0-31); Albumin Level 4.4 g/dL (3.5-5.0); Alkaline Phosphatase 60 U/L (39-117); Anion Gap 11 (12-20); Aspartate Amino Transferase 19 U/L (5-31); Bilirubin Total 0.3 mg/dL (0.0-1.0); Blood Urea Nitrogen 16 mg/dL (9-16); Calcium 9.2 mg/dL (8.4-10.2); Carbon Dioxide 25 mmol/L (22-29); Chloride 110 mmol/L (96-108); Cholesterol 217 mg/dL (<200); Estimated Glomerular Filt Rate > 60; Glucose Fasting 103 mg/dL (60-99); HDL Cholesterol 74 mg/dL (>40); LDL Cholesterol Calculated 133 mg/dL (<100); Potassium 4.3 mmol/L (3.3-5.1); Sodium 142 mmol/L (135-145); Total Protein 7.2 g/dL (6.5-8.0); Triglycerides 53 mg/dL (<150)
[2024-05-04 10:53] LABS: TSH reflex Free T4 1.62 uIU/mL (0.32-4.0); Vitamin D 25-OH Total 41.8 ng/mL (>30)
== END 2024-05-04 08:27 | disposition home or self-care (01) ==
LOC: HO.HMGCX 08:26
PROVIDERS: PCP Internal Medicine; Visit Provider Internal Medicine
DX: K82.4 Cholesterolosis of gallbladder (principal); E78.5 Hyperlipidemia, unspecified; Z00.00 Encounter for general adult medical examination without abnormal findings
CPT/HCPCS: 36415; 76705; 80053; 80061; 81001; 82306; 84443; 85025

== ENCOUNTER → 2024-05-04 08:30 | Outpatient (BNV) | payer OTHER, SELFPAY | PROVIDERS: PCP Internal Medicine; Visit Provider Radiology Diagnostic Radiology | DX: K82.4 Cholesterolosis of gallbladder (principal) | CPT/HCPCS: 76705 ==

== ENCOUNTER 2024-05-19 08:02 | Outpatient (REF) | payer OTHER, SELFPAY ==
[2024-05-24 15:03] LABS: HPV Genotype 16 Negative (Negative); HPV Genotype 18 Negative (Negative); HPV High Risk Negative (Negative)
== END 2024-05-19 08:03 | disposition home or self-care (01) ==
LOC: HO.LNP 08:02
PROVIDERS: PCP Internal Medicine; Visit Provider Internal Medicine
DX: Z00.00 Encounter for general adult medical examination without abnormal findings (principal); Z12.4 Encounter for screening for malignant neoplasm of cervix; Z11.51 Encounter for screening for human papillomavirus (HPV); E78.5 Hyperlipidemia, unspecified
CPT/HCPCS: 87626; 88175; 96127; 99396

== ENCOUNTER 2024-05-19 08:02 | Outpatient (AMB) | payer OTHER, SELFPAY ==
[2024-05-19 08:08] VITALS: BP 106/68; PULSE 70; RESP 18; TEMP 37.3; O2SAT 100; BMI 21.2
--- NOTE | 2024-05-19 08:08 | A.OFFPC_ITS ---
Vital Signs 05/19/24 08:08 Height 5 ft 2 in Weight 116 lb BMI 21.2 BP 106/68 Blood Pressure Location Lt brachial Position Sitting Respiration 18 Pulse 70 Pulse Source Pulse Oximeter Temp 99.2 F Temp Source Oral Pulse Oximetry (%) 100 Oxygen Delivery Method Room Air Intake Visit Reasons: Annual PE Intake Note: Pt is here today for PE. Allergies zolpidem [Ambien] Adverse Reaction (Unknown, Verified 05/19/24 08:09) sleep walking Medication List - Last Reconciled 05/19/24 by Ellen Plaza MD aluminum chloride 20% (Drysol) 1 appl topical 2XW Tobacco use date assessed: 05/19/24 Dental Screening Dental Screen Date: 05/19/24 Did you have a dental visit in the last 12 months?: Yes Did you have a dental problem in the last 6 months where you did not have access to dental care?: No Was dental information given to patient?: Patient has dentist HPI Annual PE HPI Details Patient presents for physical. Hormone replacement therapy helped with the hot flashes but symptoms reoccurred after patient has stopped taking the medications. She complains of chronic anxiety and insomnia since teenager age. She denies depression. Patient has been trying meditation and is not interested in counseling. [facility] Medical History Gall bladder polyp Rotator cuff injury Shoulder injury Surgical History No pertinent past surgical history Family History Father Hypertension Mother No problems noted. Sister Celiac disease Social History Household Members Other:: single, works in a cafeteria, smokes 3 cigarettes a day Housing: House Patient Tobacco Use Status: Current everyday Tobacco user Tobacco use type: Cigarette Cigarettes Per Day: 3 Years Smoked: since 22 years old e-Cigarette/Vaping Use: Never Used service: No Current occupational status: employed Cognitive needs: No Hearing needs: No Vision needs: Yes Questionnaire PHQ-9 Over the last 2 weeks, how often have you been bothered by any of the following problems? 1. Little interest or pleasure in doing things: not at all 2. Feeling down, depressed, or hopeless: not at all 3. Trouble falling or staying asleep, or sleeping too much: more than half the days 4. Feeling tired or having little energy: several days 5. Poor appetite or overeating: not at all 6. Feeling bad about yourself - or that you are a failure or have let yourself or your family down: not at all 7. Trouble concentrating on things, such as reading the newspaper or watching television: not at all 8. Moving or speaking so slowly that other people could have noticed. Or the opposite - being so fidgety or restless that you have been moving around a lot more than usual: not at all 9. Thoughts that you would be better off or of hurting yourself in some way: not at all Total score: 3 Depression Screening Interpretation: Negative Depression Screening Done: Yes 22397 - PHQ-9 Billing: Yes Source: Developed by Drs. Gage Eldridge, Amy Lr, Rafael Johnson and colleagues, with an educational radha from [employer]. Thrive Questionnaire Date Thrive assessed: 05/19/24 I am a: Patient What is your living situation today?: I have a steady place to live Within the past 12 months, did the food you bought not last and you didn't have the money to get more?: Never true Within the past 12 months, did you worry whether your food would run out before you got money to buy more?: Never true Do you have trouble paying for medicines?: No Do you have trouble getting transportation to medical appointments?: No Do you have trouble paying your heating and electricity bill?: No Do you have trouble taking care of your child, family member or friend?: No Do you have trouble with day-to-day activities such as bathing, preparing meals, shopping, managing finances, etc.?: No Are you currently unemployed and looking for a job?: No Are you interested in more education?: No Please select the resources that you would like help with: None Currently or been in a relationship where the following occur: I choose not to answer THRIVE Score: 0 AUDIT C Alcohol Use Questionnaire (AUDIT-C) 1. How often do you have a drink containing alcohol?: Monthly or less 2. How many drinks containing alcohol do you have on a typical day when you are drinking?: 3 or 4 3. How often do you have six or more drinks on one occasion?: Never Total Score: 2 CATHY-7 AMB Questionnaire CATHY-7 Date CATHY - 7 assessed: 05/19/24 Feeling nervous, anxious, or on edge: 1 = Several days Not being able to stop or control worryin = Several days Worrying too much about different things: 1 = Several days Trouble relaxin = Several days Being so restless that it is hard to sit still: 1 = Several days Becoming easily annoyed or irritable: 1 = Several days Feeling afraid as if something awful might happen: 1 = Several days Total CATHY-7 score (0-4 normal; 5-9 mild; 10-14 moderate; 15-21 severe): 7 Source: Developed by Drs. Gage Eldridge, Amy Lr, Rafael Johnson and colleagues, with an educational radha from [employer]. CATHY-7 Assessment Billing CATHY-7 Assessment Tool: CATHY-7 Assessment 57935 Review of Systems Const All systems reviewed & are unremarkable except as noted in HPI and below Eyes Reports no additional complaints ENT Reports no additional complaints Card Reports no additional complaints Resp Reports no additional complaints GI Reports no additional complaints Reports no additional complaints Physical exam (Primary Care) Vital Signs: Last Vital Signs Temp 99.2 F 05/19/24 08:08 Pulse 70 05/19/24 08:08 Resp 18 05/19/24 08:08 BP 106/68 05/19/24 08:08 Pulse Ox 100 05/19/24 08:08 Oxygen Delivery Method Room Air 05/19/24 08:08 BMI result Body Mass Index 21.2 Tobacco/Smoking Status: Tobacco use Status Tobacco use date assessed 05/19/24 05/19/24 08:13 Patient Tobacco Use Status Current everyday Tobacco 05/19/24 08:13 Tobacco use type Cigarette 05/19/24 08:13 e-Cigarette/Vaping Use Never Used 05/19/24 08:13 PHQ-9: PHQ-9 Score PHQ-9: Total score 3 05/19/24 08:42 Depression Screening Interpretation: Negative Thrive Assessment: Date of Thrive Assessment Date Thrive assessed 05/19/24 05/19/24 08:13 Currently or been in a relationship where the following occur: I choose not to answer Const General: no acute distress HENMT Head: Yes normal to inspection Face and sinus: Yes normal facial exam Mouth: Normal oral and palatal mucosa present Throat: Yes posterior oropharynx normal Eyes General: appearance normal, both eyes and all related structures Neck Neck: Yes no lymphadenopathy and Yes supple Resp Effort & Inspection: normal respiratory effort Auscultation: clear to auscultation bilaterally Cardio Rhythm: regular rhythm Heart sounds: S1 normal heart sound present and S2 normal heart sound present GI Inspection: Yes normal to inspection Palpation (GI): Soft to palpation Percussion: Yes normal to percussion Auscultation: normal bowel sounds Speculum Exam - Vagina: normal appearance of the vagina Speculum Exam - Cervix: normal appearance of the cervix Bimanual exam- vagina & uterus: normal bimanual exam Coding Level of Care Code Est Pt Prev Care 40-64y(11484) Diagnoses Annual physical exam Z00.00 Hyperlipidemia E78.5 Additional Codes CATHY-7 Assessment Billing - CATHY-7 Assessment Tool: CATHY-7 Assessment 30104 ([id number]) PHQ-9 - 27632 - PHQ-9 Billing: Yes ([id number]) Assessment & Plan Assessment & Plan (1) Annual physical exam: Code(s): Z00.00 - Encounter for general adult medical examination without abnormal findings Category: Medical Plan: Well-balanced diet regular exercise stress management discussed with the patient. She is up-to-date with the mammogram colonoscopy and Pap smear was done today. Patient will continue hormone replacement therapy. She was advised that she can not take HRT longer than 5 years due to increase risk of breast cancer (2) Hyperlipidemia: Code(s): E78.5 - Hyperlipidemia, unspecified Category: Medical Plan: Low-cholesterol diet discussed with the patient return in 1 year Orders: Orders Comprehensive [place]. Panel Fast 1 Year E78.5 - Hyperlipidemia, unspecified, Z00.00 - Encounter for general adult medical examination without abnormal findings Lipid Panel 1 Year E78.5 - Hyperlipidemia, unspecified, Z00.00 - Encounter for general adult medical examination without abnormal findings Pap Smear Today Z00.00 - Encounter for general adult medical examination without abnormal findings Complete Blood Count Auto Diff 1 Year E78.5 - Hyperlipidemia, unspecified, Z00. 00 - Encounter for general adult medical examination without abnormal findings TSH reflex Free T4 1 Year E78.5 - Hyperlipidemia, unspecified, Z00.00 - Encounter for general adult medical examination without abnormal findings UA w Microscopic 1 Year E78.5 - Hyperlipidemia, unspecified, Z00.00 - Encounter for general adult medical examination without abnormal findings Vitamin D 25-OH Total 1 Year E78.5 - Hyperlipidemia, unspecified, Z00.00 - Encounter for general adult medical examination without abnormal findings Medications: Changed From estradiol 0.5 mg PO DAILY 30 days 30 tabs 2RF To estradiol 0.5 mg PO DAILY 90 days 90 tabs 3RF Refilled progesterone micronized 200 mg PO BEDTIME 90 caps 3RF Discontinued progesterone micronized Discontinued Reason: Doctor's Order 200 mg PO BEDTIME 30 caps 2RF estradiol Discontinued Reason: Doctor's Order 0.5 mg PO DAILY 30 days 30 tabs 2RF
== END 2024-05-19 08:54 | disposition home or self-care (01) ==
PROVIDERS: PCP Internal Medicine; Visit Provider Internal Medicine
DX: Z00.00 Encounter for general adult medical examination without abnormal findings (principal); E78.5 Hyperlipidemia, unspecified

== ENCOUNTER 2024-07-18 08:47 | Outpatient (AMB) | payer OTHER, SELFPAY ==
[2024-07-18 08:53] VITALS: BP 140/68; PULSE 72; O2SAT 100; BMI 21.6
--- NOTE | 2024-07-18 08:53 | MHC.OFFVIS ---
Vital Signs 07/18/24 08:53 Height 5 ft 2 in Weight 118 lb BMI 21.6 BP 140/68 H Blood Pressure Location Rt brachial Position Sitting Pulse 72 Pulse Source Pulse Oximeter Pulse Oximetry (%) 100 Oxygen Delivery Method Room Air Intake Visit Reasons: Fecal abn, 6 mos FUV. Intake Note: ESTABLISHED PATIENT for mgmt of constipation. CC; Pt reports that her BMs have become slightly more regular than prior to last visit. However, she still has some fecal abn, mainly constipation with some diarrhea intermittently. Pt also reports recent developing GERD sx w/o dysphagia. No additional sx or concerns at this time. Senior Product Analyst Required: No Accompanied by: Self / Same As Patient Allergies zolpidem [Ambien] Adverse Reaction (Unknown, Verified 07/18/24 08:56) sleep walking HPI HPI Fecal abn, 6 mos FUV.: Details: LAST VISIT: Screen for colon cancer Postprandial epigastric pain Postprandial abdominal bloating Diarrhea Plan Patient denies any cardiac or respiratory symptoms.? Patient reports occasional postprandial abdominal bloating occasional loose stools and then constipation. Patient was encouraged to take fiber with probiotics and if she is having trouble moving her bowels to call the office. Family history of celiac, her sister was just diagnosed with upper endoscopy, with biopsy confirmed celiac disease. Patient denies any abdominal pain although reports postprandial epigastric pain occasionally. Patient reports that currently she is not staying away from gluten. Will send her to check transglutaminase. Reports postprandial loose stools at times. Will send CRP if positive will order stool calprotectin to rule out IBD. Discussed with patient low FODMAP diet. List of food recommended as well as list of food to avoid given to patient. Patient denies any dyspepsia, dysphagia or odynophagia. Will check lipase as she is reporting epigastric pain occasionally, possibility of chronic pancreatitis, unlikely acute pancreatitis as patient does not have any abdominal pain. Will check for malabsorption. Denies any issues with anesthesia in the past.? Denies any history of sleep apnea.? No history infectious diseases in the past or present.? Not on any anticoagulation therapy.? No family or personal history of colon cancer.? Patient denies melena, hematochezia, unintentional weight loss or ribbon like stools.? Message to surgical schedulers sent to book upper endoscopy and colonoscopy. Patient will return in 2 months so we can discuss prep before going for upper endoscopy and colonoscopy. Will discuss results. Patient will call our office if she will have worsening GI symptoms. Patient is agreeable to current plan of care and verbalizes understanding of instructions. She was given the opportunity to ask questions and all questions answered. ? Thank you for allowing me to participate in her care Orders Orders C Reactive Protein Today K58.9 Transglutaminase Ab IgG Today R10.9 Transglutaminase IgA Today R10.9 Lipase Today R10.9 Vitamin B12 and Folate Today R19.7 Vitamin D 25-OH (D2 and D3) Today E55.9 Magnesium Today N18.9 TODAY'S VISIT Patient is here today for follow-up and to discuss the prep. Patient reports that she has been doing little better, however she still has few days in the month where she will have thin or loose stools. Patient is taking fiber daily and is trying to change her diet. Patient is trying to follow FODMAP diet, however she states that she has occasional cravings and does not follow diet. Patient does notice the friends. Labs discussed with patient. Mild a increased lipase, otherwise everything came back normal. No celiac, normal inflammatory markers. Patient denies any abdominal pain or discomfort. Denies any nausea or vomiting. Patient reports occasional epigastric pain depending on what she eats. Patient will take Tums with affect. It happens once to twice a week. Patient denies melena, hematochezia, unintentional weight loss or ribbon like stools. Patient denies any dyspepsia, dysphagia or odynophagia. [facility] Medical History Gall bladder polyp Rotator cuff injury Shoulder injury Surgical History No pertinent past surgical history Family History Father Hypertension Mother No problems noted. Sister Celiac disease Social History Household Members Other:: single, works in a cafeteria, smokes 3 cigarettes a day Housing: House Patient Tobacco Use Status: Current everyday Tobacco user Tobacco use type: Cigarette Cigarettes Per Day: 3 Years Smoked: since 22 years old e-Cigarette/Vaping Use: Never Used service: No Current occupational status: employed Cognitive needs: No Hearing needs: No Vision needs: Yes Review of Systems Const Denies weight gain and Denies weight loss ENT Reports no additional complaints, Denies dysphagia and Denies odynophagia Card Reports no additional complaints Resp Reports no additional complaints GI Reports abdominal pain (Epigastric), Denies belching, Denies melena, Reports bloating, Denies change in bowel habits, Reports constipation, Denies dysphagia, Denies excessive flatus, Denies dyspepsia, Reports heartburn (Occasional), Denies diarrhea, Reports loose stools, Denies nausea, Denies odynophagia and Denies vomiting Reports no additional complaints Musc Reports no additional complaints Neuro Reports no additional complaints Psych Reports no additional complaints Endo Reports no additional complaints Physical Exam Const General: healthy appearing, no acute distress and well developed Nutritional Appearance: well nourished Orientation/consciousness: patient oriented x3 Resp Effort & Inspection: normal respiratory effort, able to speak in complete sentences, no tracheal deviation and symmetric chest movement Auscultation: clear to auscultation bilaterally Cardio Rate: regular rate GI Inspection: Yes normal to inspection and No distended Palpation (GI): Soft to palpation, not firm, nontender and No hepatosplenomegaly present Auscultation: normal bowel sounds General: Yes no CVA tenderness Back/Spine/Pelvis Back: no CVA tenderness Skin General skin exam: elasticity normal, turgor normal and dry skin Neuro General: patient oriented x3 Psych Appearance: grossly normal Mental Status: mental status grossly normal Results Reviewed Results Reviewed: Laboratory Tests 03/11/24 05/04/24 11:09 08:55 Magnesium 2.4 C-Reactive Protein < 0.04 Lipase 129 H Vitamin B12 481 25-Hydroxy Vitamin D3 37 Folate > 20.0 TSH 1.62 Tiss Transglutamin IgG <1.0 Tiss Transglutamin IgA <1.0 Assessment & Plan Assessment & Plan (1) Screen for colon cancer: Code(s): Z12.11 - Encounter for screening for malignant neoplasm of colon (2) Postprandial epigastric pain: Code(s): R10.13 - Epigastric pain (3) Postprandial abdominal bloating: Code(s): R14.0 - Abdominal distension (gaseous) (4) Diarrhea: Code(s): R19.7 - Diarrhea, unspecified Qualifiers: Diarrhea type: functional diarrhea Qualified Code(s): K59.1 - Functional diarrhea Plan Patient to repeat lipase. Denies any abdominal pain or discomfort. Continue low FODMAP diet. Continue high-fiber. Increase fluid intake and activity to promote better bowel motility. Avoid dietary triggers. What to expect before during and after procedure discussed with patient. Stressed importance of good bowel prep and clear liquid diet day before procedure. Patient will also go for upper endoscopy as she is complaining of epigastric pain postprandially. Family history of celiac. Patient had normal her transglutaminase. I will see patient after the procedure, sooner on as needed basis. Patient is agreeable to this plan and verbalizes understanding of instructions. She was given the opportunity to ask questions and all questions answered. Thank you for allowing me to participate in her care Orders: Orders Lipase Today R10.9 - Unspecified abdominal pain Medications: New bisacodyl (Dulcolax (bisacodyl)) take 4 tabs at noon the day before your colonoscopy 20 mg (4 x 5 mg) PO ONCE 1 day 4 tabs 0RF constipation Z12.11 - Encounter for screening for malignant neoplasm of colon polyethylene glycol 3350 (Miralax) As directed by gastroenterology department at [facility] 238 grams PO ONCE 238 grams 0RF Z12.11 - Encounter for screening for malignant neoplasm of colon Coding Level of Care Code Est Pt Level 4 (34679) Diagnoses Screen for colon cancer Z12.11 Postprandial epigastric pain R10.13 Postprandial abdominal bloating R14.0 Functional diarrhea K59.1 Diarrhea type: functional diarrhea Time Spent (min) 35 Comment 25 minutes spent with patient and additional 10 minutes spent reviewing her records
== END 2024-07-18 09:23 | disposition home or self-care (01) ==
LOC: HO.HGI 08:47
PROVIDERS: PCP Internal Medicine; Visit Provider Nurse Practitioner Family
DX: K59.1 Functional diarrhea (principal); R10.13 Epigastric pain; R14.0 Abdominal distension (gaseous)
CPT/HCPCS: 99214

== ENCOUNTER → 2024-07-18 08:47 | Outpatient (BNVA) | payer OTHER, SELFPAY | PROVIDERS: PCP Internal Medicine; Visit Provider Nurse Practitioner Family | DX: Z12.11 Encounter for screening for malignant neoplasm of colon (principal); R10.13 Epigastric pain; R14.0 Abdominal distension (gaseous); K59.1 Functional diarrhea | CPT/HCPCS: 99212 ==

== ENCOUNTER 2024-09-15 06:20 | Day surgery (SDC) | payer OTHER, SELFPAY ==
[2024-09-13 14:19] VITALS: BMI 21.6
--- NOTE | 2024-09-14 09:19 | HO.ANESPROP2 ---
Documented by User: Ana Laura Small NP 09/14/24 09:19 HPI - Anesthesia Eval Consult details Narrative: 43yo F for Upper Endoscopy and Colonoscopy PMFSH Active Problems Active Problems: All Active Problems Menopause (Acute) Hyperlipidemia (Acute) Abnormal Pap smear of cervix (Acute) Hx of cone biopsy of cervix (Acute) Knee pain, right (Acute) Left tennis elbow (Acute) Annual physical exam (Acute) Acromioclavicular joint arthritis (Acute) Tendinitis of left rotator cuff (Acute) Gall bladder polyp (Acute) Rotator cuff injury (Acute) Shoulder injury (Acute) Past Medical History Medical History Gall bladder polyp Rotator cuff injury Shoulder injury Family History Family History Father Hypertension Mother No problems noted. Sister Celiac disease Surgical History Surgical History Hx of neck surgery No pertinent past surgical history Social History Social History Household Members Other:: single, works in a cafeteria, smokes 3 cigarettes a day Housing: House Patient Tobacco Use Status: Current everyday Tobacco user Tobacco use type: Cigarette Cigarettes Per Day: 5 Years Smoked: since 22 years old e-Cigarette/Vaping Use: Never Used Use of substances other than those prescribed or required for medical reasons: Yes Substance Use Type Other:: edibles and smoked--last smoked 7/2 pm Are you DNR?: No Advance Directives: No Advance Directives Information Provided: Yes service: No Current occupational status: employed Cognitive needs: No Hearing needs: No Vision needs: Yes Meds Allergies Allergy/AdvReac Type Severity Reaction Status Date / Time zolpidem (Ambien) AdvReac Unknown sleep Verified 09/15/24 06:37 walking Exam Height,Weight and Vital Signs: Height 5 ft 2 in Weight 53.524 kg Assessment and Plan Assessment Anesthesia Assessment: Chart Reviewed Documented by User: Sharlene Figueroa MD 09/15/24 07:35 PMFSH Past Medical History Medical History Gall bladder polyp Rotator cuff injury Shoulder injury Family History Family History Father Hypertension Mother No problems noted. Sister Celiac disease Surgical History Surgical History Hx of neck surgery No pertinent past surgical history History of Problems with Anesthesia: No Social History Social History Household Members Other:: single, works in a cafeteria, smokes 3 cigarettes a day Housing: House Patient Tobacco Use Status: Current everyday Tobacco user Tobacco use type: Cigarette Cigarettes Per Day: 5 Years Smoked: since 22 years old e-Cigarette/Vaping Use: Never Used Use of substances other than those prescribed or required for medical reasons: Yes Substance Use Type Other:: edibles and smoked--last smoked 7/2 pm Are you DNR?: No Advance Directives: No Advance Directives Information Provided: Yes service: No Current occupational status: employed Cognitive needs: No Hearing needs: No Vision needs: Yes Meds Allergies Allergy/AdvReac Type Severity Reaction Status Date / Time zolpidem (Ambien) AdvReac Unknown sleep Verified 09/15/24 06:37 walking Exam Airway Mallampati Class: II TM Dist: >3cm Neck ROM: Full Loose/Missing/Broken Teeth: No Heart: RRR Lungs: CTA Assessment and Plan Assessment Anesthesia Assessment: Anesthesia Plan Discussed Final Anesthetic Review History of Problems with Anesthesia: No NPO: Yes ASA Class: II Final Preanesthetic Review: Meds/Allgs Chart Reviewed, Consent Obtained/Reviewed and Anes Risks/Benef Reviewed Patient Risk: Low Procedure Risk: Intermediate Anesthetic Plan Anesthetic Plan: MAC: Disposition: Standard PACU
[2024-09-15 06:38] VITALS: BMI 22.7
[2024-09-15 06:48] VITALS: BP 108/56; PULSE 62; RESP 15; TEMP 36.9; O2SAT 97
[2024-09-15] MEDS: Lactated Ringers 1,000 ML 100 ML IVCONT (06:57)
[2024-09-15 07:02] LABS: UPreg QC Valid YES
--- NOTE | 2024-09-15 07:49 | MHC.SHP ---
Pre-Procedural Eval Section A - 24 Hr Update-Section A only Date of Service: 09/15/24 Section B - Complete if H&P > 30 days Chief Complaint: Screening, GERD Details of Present Illness: Gall bladder polyp Rotator cuff injury Shoulder injury Present Medications: see Short Stay Collaborative assessment Allergies: Allergies Allergy/AdvReac Type Severity Reaction Status Date / Time zolpidem (Ambien) AdvReac Unknown sleep Verified 09/15/24 06:37 walking Review of Systems Review of Systems Comment: Ten point ROS negative Exam Exam Comment: Gen appear: No acute distress HEENT: no icterus Chest: No overt resp distress Abd: soft, nontender, nondistended Psych: Stable affect, answering questions appropriately Neuro: A/Ox3 noted to move all extremities spontaneously Ext: no peripheral edema Plan Diagnosis/Plan: Unchanged I have reviewed the history and physical and performed a pertinent physical examination on my patient. No changes have occurred unless specified. Time Spent With Patient Time: Total time managing care of this patient today ____ minutes.
--- NOTE | 2024-09-15 08:26 | P.OPN-COLO_ITS ---
Colonoscopy Operative Note Operative Note Date of Service: 09/15/24 Narrative: Procedure: Upper endoscopy and colonoscopy Indication: GERD, screening Endoscopist: Kerry Villalobos MD Anesthesia Provider: Dr Sharlene Figueroa Anesthesia type: MAC Instrument: [id number] and [id number] EGD Procedure:?? The procedure, indications, preparation and potential complications were reviewed with the patient, who indicated understanding and gave written informed consent to proceed. The endoscope was introduced through the mouth, and advanced to the 2nd part of the duodenum. The mucosa was carefully examined on slow withdrawal of the endoscope. The patient tolerated the procedure well. There were no immediate complications.? EGD Findings:? * Esophagus:? Normal esophageal mucosa was noted. The Z-line was at 38 cm. Cold forceps biopsies were taken from GE junction. * Stomach:? Erythema and edema in body and antrum. Retroflexion was performed in the cardia. Random cold forceps biopsies were taken from the stomach. Polyp noted in the gastric body. Cold forceps polypectomy was performed. * Duodenum:? Erythema and edema in the duodenal bulb. Cold forceps biopsies were taken from the duodenal bulb and 2nd portion of the duodenum to rule out celiac sprue. Colonoscopy Procedure:? The patient was then turned for the colonoscopy. A digital rectal exam was performed which was normal.? A distal attachment cap was affixed to the tip of the scope and the colonoscope was then inserted through the anus and advanced through the colon and advanced to the cecum at 75 cm and terminal ileum.? Appendiceal orifice and ileocecal valve were identified. Mucosa was carefully examined under high definition white light as the instrument was slowly withdrawn in a retrograde panoramic fashion. Retroflexion was performed in rectum. The procedure was not difficult. The quality of the prep was BBPS: 2+3+3 = adequate Withdrawal time 8 minutes Limitations: No limitations Findings: Mucosa: Normal colon and terminal ileum mucosa. Protruding lesions: * 1 sessile polyp of size 2 mm in ascending colon. Cold forceps polypectomy was performed. The polyp was completely removed and retrieved. * Medium internal hemorrhoids without stigmata of recent bleeding. Impression: 1. Normal esophagus (biopsy) 2. Gastritis (biopsy) 3. Gastric polyp (biopsy) 4. Bulbar duodenitis (biopsy) 5. Normal colon and terminal ileum mucosa 6. 1 polyp removed 7. Internal hemorrhoids Recommendations:?? * Follow-up path results * Start omeprazole 20 mg once daily * Avoid NSAIDs * H Pylori treatment if biopsies + * Repeat colonoscopy for CRC screening in 7-10 years.
[2024-09-15 08:30] VITALS: BP 97/43; PULSE 66; RESP 18; TEMP 36.4; O2SAT 98
[2024-09-15 08:51] VITALS: BP 106/50; PULSE 55; RESP 18; TEMP 36.2; O2SAT 99
== END 2024-09-15 09:09 | disposition home or self-care (01) ==
PROVIDERS: Nurse Practitioner; PCP Internal Medicine; Visit Provider Internal Medicine
PROC: (CPT 45380; principal; 2024-09-15 07:30)
DX: Z12.11 Encounter for screening for malignant neoplasm of colon (principal); D12.2 Benign neoplasm of ascending colon; K64.8 Other hemorrhoids; K21.9 Gastro-esophageal reflux disease without esophagitis; K29.60 Other gastritis without bleeding; K31.7 Polyp of stomach and duodenum; K29.80 Duodenitis without bleeding; E78.5 Hyperlipidemia, unspecified; F17.210 Nicotine dependence, cigarettes, uncomplicated; Z79.899 Other long term (current) drug therapy
CPT/HCPCS: 45380; 43239; 81025; 88305; 88313; 88342; J2003; J2250; J2704

== ENCOUNTER → 2024-09-15 06:20 | Outpatient (BNV) | payer OTHER, SELFPAY | PROVIDERS: PCP Internal Medicine; Visit Provider Internal Medicine | DX: Z12.11 Encounter for screening for malignant neoplasm of colon (principal); D12.2 Benign neoplasm of ascending colon; K64.8 Other hemorrhoids; K21.9 Gastro-esophageal reflux disease without esophagitis; K29.70 Gastritis, unspecified, without bleeding; K31.7 Polyp of stomach and duodenum; K29.80 Duodenitis without bleeding | CPT/HCPCS: 43239; 45380 ==

== ENCOUNTER 2024-09-28 09:21 | Outpatient (AMB) | payer OTHER, SELFPAY ==
--- NOTE | 2024-09-28 09:25 | A.OFFVIS_ITS ---
Vital Signs 09/28/24 09:26 Height 52 ft Weight 124 lb BMI 0.2 BP 106/56 L Blood Pressure Location Lt brachial Position Sitting Pulse 56 Pulse Oximetry (%) 98 Oxygen Delivery Method Room Air Intake Visit Reasons: s/p double Wilfredo Intake Note: Patient follow up for s/p double results. Patient cc: abdominal bloating and diarrhea. Denies any other GI issues. [employer] Required: No Accompanied by: Self / Same As Patient Allergies zolpidem (Ambien) Adverse Reaction (Unknown, Verified 09/28/24 09:25) sleep walking HPI HPI s/p double Wilfredo: Details: LAST VISIT: Screen for colon cancer Postprandial epigastric pain Postprandial abdominal bloating Diarrhea Plan Patient to repeat lipase. Denies any abdominal pain or discomfort. Continue low FODMAP diet. Continue high-fiber. Increase fluid intake and activity to promote better bowel motility. Avoid dietary triggers. What to expect before during and after procedure discussed with patient. Stressed importance of good bowel prep and clear liquid diet day before procedure. Patient will also go for upper endoscopy as she is complaining of epigastric pain postprandially. Family history of celiac. Patient had normal her transglutaminase. I will see patient after the procedure, sooner on as needed basis. Patient is agreeable to this plan and verbalizes understanding of instructions. She was given the opportunity to ask questions and all questions answered. ? Thank you for allowing me to participate in her care Orders Lipase Today R10.9 New bisacodyl (Dulcolax (bisacodyl)) take 4 tabs at noon the day before your colonoscopy 20 mg (4 x 5 mg) PO ONCE 1 day 4 tabs 0RF constipation Z12.11 polyethylene glycol 3350 (Miralax) As directed by gastroenterology department at [facility] 238 grams PO ONCE 238 grams 0RF Z12.11 UPPER ENDOSCOPY AND COLONOSCOPY EGD Findings:? * Esophagus:? Normal esophageal mucosa was noted. The Z-line was at 38 cm. Cold forceps biopsies were taken from GE junction. * Stomach:? Erythema and edema in body and antrum. Retroflexion was performed in the cardia. Random cold forceps biopsies were taken from the stomach. Polyp noted in the gastric body. Cold forceps polypectomy was performed. * Duodenum:? Erythema and edema in the duodenal bulb. Cold forceps biopsies were taken from the duodenal bulb and 2nd portion of the duodenum to rule out celiac sprue. Colonoscopy Procedure:? The patient was then turned for the colonoscopy. A digital rectal exam was performed which was normal.? A distal attachment cap was affixed to the tip of the scope and the colonoscope was then inserted through the anus and advanced through the colon and advanced to the cecum at 75 cm and terminal ileum.? Appendiceal orifice and ileocecal valve were identified. Mucosa was carefully examined under high definition white light as the instrument was slowly withdrawn in a retrograde panoramic fashion. Retroflexion was performed in rectum. The procedure was not difficult. The quality of the prep was BBPS: 2+3+3 = adequate Withdrawal time 8 minutes Limitations: No limitations Findings: Mucosa: Normal colon and terminal ileum mucosa. Protruding lesions: * 1 sessile polyp of size 2 mm in ascending colon. Cold forceps polypectomy was performed. The polyp was completely removed and retrieved. * Medium internal hemorrhoids without stigmata of recent bleeding.Impression: 1. Normal esophagus (biopsy) 2. Gastritis (biopsy) 3. Gastric polyp (biopsy) 4. Bulbar duodenitis (biopsy) 5. Normal colon and terminal ileum mucosa 6. 1 polyp removed 7. Internal hemorrhoids Recommendations:?? * Follow-up path results * Start omeprazole 20 mg once daily * Avoid NSAIDs * H Pylori treatment if biopsies + * Repeat colonoscopy for CRC screening in 7-10 years. PATHOLOGY RESULTS: Diagnosis A. Duodenum, biopsy: Duodenal mucosa with preserved villi and Radha's gland hyperplasia; otherwise no specific change. B. Stomach, random, biopsy: Gastric body mucosa with minimal chronic inactive gastritis; negative for H.pylori, intestinal metaplasia and dysplasia. C. Gastric polyp, biopsy: Fundic gland polyp with focal minimal chronic inactive inflammation; negative for H.pylori, intestinal metaplasia and dysplasia. D. Gastroesophageal junction, biopsy: Squamous mucosa with hyperplasia, spongiosis, and focal intraepithelial eosinophils (up to 4 per high-power field), consistent with esophagitis; no columnar mucosa present. E. Colon, ascending, polyp: Tubular adenoma; negative for high-grade dysplasia and carcinoma. TODAY'S VISIT: Patient is here today for follow-up and to discuss upper endoscopy and colonoscopy results. Chronic inactive inflammation without H pylori seen. Do GE junction biopsy showed esophagitis. Colonoscopy ascending polyp would 1 tubular adenoma negative for high-grade dysplasia or carcinoma. Patient denies any ill effects from the prep, anesthesia or procedure itself. Patient reports that she has been feeling fairly well. Occasional epigastric pain depending on what she eats. Patient knows to avoid dietary triggers. Currently is taking omeprazole with good effect. Moving her bowels well without any issues. Occasional postprandial abdominal bloating and loose stools. Patient is trying to follow low FODMAP diet as much as she can. Colonoscopy in 7 years, no family history of CRC. Patient denies dyspepsia, dysphagia or odynophagia. Denies melena, hematochezia, unintentional weight loss or ribbon like stools. [facility] Medical History (Updated 09/28/24 @ 10:01 by Yanira Vazquez [facility]) Tubular adenoma of colon GERD (gastroesophageal reflux disease) Gall bladder polyp Rotator cuff injury Shoulder injury Surgical History Hx of neck surgery No pertinent past surgical history Family History Father Hypertension Mother No problems noted. Sister Celiac disease Social History Household Members Other:: single, works in a cafeteria, smokes 3 cigarettes a day Housing: House Patient Tobacco Use Status: Current everyday Tobacco user Tobacco use type: Cigarette Cigarettes Per Day: 5 Years Smoked: since 22 years old e-Cigarette/Vaping Use: Never Used service: No Current occupational status: employed Cognitive needs: No Hearing needs: No Vision needs: Yes Review of Systems Const Denies weight gain and Denies weight loss ENT Reports no additional complaints, Denies dysphagia and Denies odynophagia Card Reports no additional complaints Resp Reports no additional complaints GI Reports abdominal pain (Epigastric), Denies belching, Denies melena, Reports bloating (OCCASIONAL), Denies change in bowel habits, Denies constipation, Denies dysphagia, Denies excessive flatus, Denies dyspepsia, Denies heartburn, Denies diarrhea, Reports loose stools, Denies nausea, Denies odynophagia and Denies vomiting Reports no additional complaints Musc Reports no additional complaints Neuro Reports no additional complaints Psych Reports no additional complaints Endo Reports no additional complaints Physical Exam Vital Signs: Last Vital Signs Pulse 56 09/28/24 09:26 BP 106/56 L 09/28/24 09:26 Pulse Ox 98 09/28/24 09:26 Oxygen Delivery Method Room Air 09/28/24 09:26 BMI result Body Mass Index 0.2 Const General: healthy appearing, no acute distress and well developed Nutritional Appearance: well nourished Orientation/consciousness: patient oriented x3 Resp Effort & Inspection: normal respiratory effort, able to speak in complete sentences, no tracheal deviation and symmetric chest movement Auscultation: clear to auscultation bilaterally Cardio Rate: regular rate GI Inspection: Yes normal to inspection and No distended Palpation (GI): Soft to palpation, not firm, nontender and No hepatosplenomegaly present Auscultation: normal bowel sounds General: Yes no CVA tenderness Back/Spine/Pelvis Back: no CVA tenderness Skin General skin exam: elasticity normal, turgor normal and dry skin Neuro General: patient oriented x3 Psych Appearance: grossly normal Mental Status: mental status grossly normal Assessment & Plan Assessment & Plan (1) GERD (gastroesophageal reflux disease): Code(s): K21.9 - Gastro-esophageal reflux disease without esophagitis Category: Medical Qualifiers: Esophagitis presence: without esophagitis Qualified Code(s): K21.9 - Gastro-esophageal reflux disease without esophagitis (2) Tubular adenoma of colon: Code(s): D12.6 - Benign neoplasm of colon, unspecified Category: Medical (3) Status post colonoscopy: Code(s): Z98.890 - Other specified postprocedural states Plan Patient will continue taking omeprazole daily. Continue avoiding dietary triggers and late night snacking. Staying upright for minimum 3 hours after meals discussed with patient. Increase fluid intake and activity to promote better bowel motility. Increase fiber intake. May take [id number] fiber supplements to help patient bulk her stool. Follow-up in 6 months, sooner on as needed basis. She is agreeable to this plan and verbalizes any of instructions. She was given the opportunity to ask questions and all questions answered. Thank you for allowing me to participate in her care Coding Level of Care Code Est Pt Level 3 (50620) Diagnoses Gastroesophageal reflux disease without esophagitis K21.9 Esophagitis presence: without esophagitis Tubular adenoma of colon D12.6 Status post colonoscopy Z98.890 Time Spent (min) 30 Comment 20 minutes spent with patient and additional 10 minutes spent reviewing her records
[2024-09-28 09:26] VITALS: BP 106/56; PULSE 56; O2SAT 98
== END 2024-09-28 09:49 | disposition home or self-care (01) ==
LOC: HO.HGI 09:22
PROVIDERS: PCP Internal Medicine; Visit Provider Nurse Practitioner Family
DX: K21.9 Gastro-esophageal reflux disease without esophagitis (principal); D12.6 Benign neoplasm of colon, unspecified; Z98.890 Other specified postprocedural states
CPT/HCPCS: 99213

== ENCOUNTER → 2024-09-28 09:21 | Outpatient (BNVA) | payer OTHER, SELFPAY | PROVIDERS: PCP Internal Medicine; Visit Provider Nurse Practitioner Family | DX: K21.9 Gastro-esophageal reflux disease without esophagitis (principal); D12.6 Benign neoplasm of colon, unspecified; Z98.890 Other specified postprocedural states | CPT/HCPCS: 99212 ==